=== PATIENT | female | born 1950 | race African-American/Black ===

== ENCOUNTER 2017-08-21 21:37 | Emergency (ER) | payer OTHER, MEDICAID ==
[~2017-08-21] VITALS: Ht 167.6 cm; Wt 75.0 kg
[2017-08-22] MEDS ORDERED: IBUPROFEN 600MG TABLET PO STA (00:10)
[2017-08-22 00:43] LABS: CLARITY URINE CLEAR (CLEAR); COLOR URINE YELLOW (YELLOW); KETONES URINE NEGATIVE (NEGATIVE); LEUKOCYTE ESTERASE URINE TRACE (NEGATIVE); NITRITE URINE NEGATIVE (NEGATIVE); OCCULT BLOOD URINE NEGATIVE (NEGATIVE); PH URINE 5.5 (4.5-8.0); PROTEIN URINE NEGATIVE (NEGATIVE); SPECIFIC GRAVITY URINE 1.011 (1.005-1.030); UROBILINOGEN URINE 0.2 E.U./dL (0.2-1.0)
[2017-08-22 00:46] LABS: BASOPHILS % 0.7 % (0.0-2.0); EOSINOPHILS % 1.2 % (0.0-5.0); HEMATOCRIT. 38.6 % (36.0-48.0); HEMOGLOBIN. 12.7 g/dL (12.0-16.0); LYMPHOCYTES % 20.6 % (20.0-50.0); MEAN CORPUSCULAR HEMOGLOBIN 29.3 pg (28.0-32.0); MEAN CORPUSCULAR VOLUME 88.8 fL (81.0-99.0); MEAN PLATELET VOLUME 8.8 fl (7.4-10.4); MONOCYTES % 11.8 % (2.0-8.0); NEUTROPHILS % 65.7 % (40.0-76.0); PLATELET 166 x1000/uL (130-400); RED BLOOD CELL COUNT 4.34 mill/uL (4.2-5.4); RED CELL DISTRIBUTION WIDTH 14.5 % (11.6-14.6)
[2017-08-22 01:03] LABS: CARBON DIOXIDE 29 mEq/L (21-32); CHLORIDE 105 mEq/L (98-107); TROPONIN I < 0.02 ng/mL (0.00-0.04)
[2017-08-22 06:08] VITALS: BP 101/60
== END 2017-08-22 06:10 | disposition home or self-care (01) ==
LOC: ER 21:37
DX: J10.1 Influenza due to other identified influenza virus with other respiratory manifestations (principal); M60.9 Myositis, unspecified; Z98.890 Other specified postprocedural states
CPT/HCPCS: 36415; 71045; 80053; 81001; 83690; 84484; 85025; 87804; 93005; 99285; J7030

== ENCOUNTER 2022-10-06 14:47 | Emergency (ER) | payer BC, MEDICAID ==
[~2022-10-06] VITALS: Ht 172.7 cm; Wt 70.0 kg
[2022-10-06] MEDS ORDERED: KETOROLAC 60MG/2ML VIAL IM ONE (15:00)
[2022-10-07] MEDS ORDERED: IBUP-2029 MT (00:28)
[2022-10-07] MEDS ORDERED: KETOROLAC 60MG/2ML VIAL IM ONE (00:30)
[2022-10-07 00:42] VITALS: BP 124/63
== END 2022-10-07 01:14 | disposition home or self-care (01) ==
LOC: ER 14:47 → EDBD 14:47 → ER 10-07 01:14
DX: M25.551 Pain in right hip (principal); Z98.890 Other specified postprocedural states
CPT/HCPCS: 73502; 96372; 99283; J1885